=== PATIENT | male | born 2000 | race Two or more races ===

== ENCOUNTER 2024-07-15 21:22 | Emergency (ER) | payer MEDICAID, SELFPAY ==
[2024-07-15 22:06] VITALS: BP 117/78; PULSE 72; RESP 18; TEMP 37.2; O2SAT 99; BMI 25.8
--- NOTE | 2024-07-15 22:12 | PD.EDRME ---
Rapid Medical Screening Exam RME Arrival date/time: 07/15/24 21:22 23 yo m present to Ed for c/o of lower abdominal pain for 3 days I have greeted and performed a focused initial assessment of this patient. A comprehensive ED assessment and evaluation of the patient, analysis of all test results, and completion of the medical decision making process will be conducted by additional ED providers. Chief Complaint: Abdominal Pain Time Seen by Provider: 07/15/24 21:50 Vital signs: Vital Signs Temperature 98.9 F 07/15/24 22:06 Pulse Rate 72 07/15/24 22:06 Respiratory Rate 18 07/15/24 22:06 Blood Pressure 117/78 07/15/24 22:06 Pulse Oximetry (%) 99 07/15/24 22:06 Oxygen Delivery Method Room Air 07/15/24 22:06
--- NOTE | 2024-07-15 22:14 | XR_ITS ---
Examination: CT abdomen with intravenous contrast CT pelvis with intravenous contrast 2-D coronal reconstructions 2-D sagittal reconstructions Date and time of exam:July 16, 2024 0022 hrs. Indications: Right lower abdominal pain nausea vomiting beginning 3 days ago. CTDI: vol (mGy) 6.68 DLP: (mGycm) 368 Technique: Multiple axial sections of the abdomen and pelvis have been obtained. 64 slice high-resolution scanner used. 3 mm axial sections have been obtained, post intravenous injection 60 cc [id number] 2-D sagittal, coronal reconstructions obtained. Low dose protocols were performed. One or more of the following dose reduction techniques were used; automated exposure control, adjustment of the mA and/or KV according to patient size, use of iterative reconstruction technique. Findings: No focal liver or splenic lesions No gallstones Negative for pancreatitis No renal or ureteral calculi, no hydronephrosis Aorta normal size Normal appendix No bowel obstruction or diverticulitis Urinary bladder intact Impression: Normal appendix No acute process in the abdomen and pelvis
[2024-07-15 22:33] LABS: Basophils % (Auto) 0 % (0-2.5); Eosinophils % (Auto) 0 % (0-10); Hematocrit 48.4 % (41.0-53.0); Hemoglobin 17.5 g/dL (13.5-16.0); Immature Granulocytes % (Auto) 1 % (0-0); Immature Granulocytes Auto 0.05 Thou/mm3 (0.00-0.00); Lymphocytes # (Auto) 1.3 Thou/mm3 (1.0-4.8); Lymphocytes % (Auto) 13 % (10-50); Mean Corpuscular HGB Conc 36.2 g/dl (31.0-37.0); Mean Corpuscular Hemoglobin 31.1 pg (25.0-35.0); Mean Corpuscular Volume 86 fL (80-100); Monocytes # (Auto) 0.8 Thou/mm3 (0.0-0.8); Monocytes % (Auto) 8 % (0-12); Neutrophils # (Auto) 7.8 Thou/mm3 (1.8-7.7); Neutrophils % (Auto) 78 % (37-80); Nucleated Red Blood Cell % 0 /100 WBC (0); Platelet Count 189 Thou/mm3 (140-440); RDW Standard Deviation 38.4 fL (35.1-43.9); Red Blood Count 5.62 Miln/mm3 (4.50-5.90); White Blood Count 10.1 Thou/mm3 (3.8-10.6)
[2024-07-15 22:49] LABS: Alanine Aminotransferase 25 U/L (10-49); Anion Gap 9 (7-16); Aspartate Amino Transferase 23 U/L (0-34); BUN/Creatinine Ratio 9 Ratio (12-20); Bilirubin,Total 2.7 mg/dL (0.3-1.2); Blood Urea Nitrogen 10 mg/dL (9-23); Calcium 9.9 mg/dL (8.3-10.6); Carbon Dioxide 26.1 mMol/L (20.0-31.0); Chloride 104 mMol/L (98-107); Creatinine (Component) 1.1 mg/dL (0.6-1.3); Estimated Creatinine Clearance 108.8 mL/min (>60); Glucose 101 mg/dL (74-106); Osmolality,Calculated 276 (275-295); Potassium 4.4 mMol/L (3.4-5.1); Sodium 139 mMol/L (136-145); Total Protein 8.1 gm/dL (5.7-8.2); eGFR > 60 See Note
[2024-07-15 22:50] LABS: Albumin/Globulin Ratio 1.6 (1.2-2.2); Alkaline Phosphatase 122 U/L (46-116); Calcium (Corrected) 9.9 mg/dL (8.5-10.1); Globulin 3.1 gm/dL (2.3-3.5); Lipase 28 U/L (12-53)
[2024-07-15 23:26] LABS: Collection Type, Urine Voided
[2024-07-15 23:35] LABS: Bacteria,Urine Rare; Bilirubin,Urine Negative (Negative); Blood,Urine Negative (Negative); Clarity,Urine Clear (Clear/Hazy); Color,Urine Yellow (Lt Yel-Yel); Glucose, Urine Negative (Negative); Ketones,Urine Negative (Negative); Leukocyte Esterase,Urine Negative (Negative); Nitrite,Urine Negative (Negative); Protein,Urine 1+ (Neg - Trace); RBC,Urine 5 /hpf (0-3); Squamous Epithelial Cell,Urine < 1 /hpf (0-5); WBC,Urine 2 /hpf (0-5)
[2024-07-15] MEDS: ONDANSETRON ODT 4 MG TABRAP PO (23:37)
--- NOTE | 2024-07-16 00:37 | PD.EDABDPN ---
ED Abdominal Pain RME/HPI General Chief Complaint: Abdominal Pain Stated complaint: ABDOMINAL PAIN, N/V Time seen by provider: 07/15/24 21:50 Arrival date/time: 07/15/24 21:22 Limitations: no limitations RME / HPI RME / HPI narrative: 07/15/24 21:22 23 yo m present to Ed for c/o of lower abdominal pain for 3 days I have greeted and performed a focused initial assessment of this patient. A comprehensive ED assessment and evaluation of the patient, analysis of all test results, and completion of the medical decision making process will be conducted by additional ED providers. Dr. Vargas's Main ED Evaluation: 23yo male presents to the ED for a chief complaint of epigastric pain x 1 week. Patient states he started having epigastric pain, describing it as burning in nature. Patient states his pain worsened today and he had one nonbloody emetic episode, so he came in for evaluation. He states he eats a lot of spicy foods. He denies any fever, chills, diarrhea or any other associated symptoms. No known allergies. Related Data Previous Rx's ?Medication ?Instructions ?Recorded famotidine 20 mg tablet (Pepcid) 20 mg PO BID 30 days #60 tabs 07/16/24 Allergies Allergy/AdvReac Type Severity Reaction Status Date / Time No Known Allergies Allergy Verified 07/15/24 21:25 Review of Systems Review of Systems Systems Reviewed: All systems reviewed, normal except as documented ED Exam General Limitations: Present no limitations General appearance: Present alert and in no apparent distress Head Head exam: Present atraumatic Eye Eye exam: Present normal appearance, PERRL and EOMI ENT ENT exam: Present normal exam, normal oropharynx and mucous membranes moist Neck Neck exam: Present normal inspection, full ROM and trachea midline Chest Chest inspection: Present normal inspection and symmetric chest wall rise Respiratory Respiratory exam: Present normal lung sounds bilaterally Cardiovascular Cardiovascular exam: Present regular rate, normal rhythm and normal heart sounds Abdominal Exam Abdominal exam: Present soft and normal bowel sounds; Absent rebound Abdominal tenderness: Present epigastrium Extremities Exam Extremities exam: Present normal inspection and full ROM Back Exam Back exam: Present normal inspection and full ROM Neurological Exam Neurological exam: Present alert, oriented X3 and CN II-XII intact Psychiatric Psychiatric exam: Present normal affect and normal mood Skin Skin exam: Present warm, dry, intact and normal color Course Quality Measures none Orders Category Date Time Status Bedside Influenza A&B Antigen Test NOW Care 07/15/24 22:[address] Screening NOW Care 07/15/24 22:14 Active IV [Insert IV] STAT Care 07/15/24 22:[address] abdomen pelvis w con Stat Exams 07/15/24 22:14 Taken US gall bladder Stat Exams 07/16/24 00:47 Taken CBC Stat Lab 07/15/24 22:22 Completed CMP [Comprehensive Metabolic Panel] Stat Lab 07/15/24 22:22 Completed Lipase Stat Lab 07/15/24 22:22 Completed UA [Urinalysis] Stat Lab 07/15/24 23:13 Completed Urine Culture Stat Lab 07/15/24 22:12 Received Famotidine Inj [Pepcid Inj] Med 07/16/24 00:46 Discontinued 20 mg IVP X1 ONE Famotidine [Pepcid] Med 07/16/24 00:41 Discontinued 40 mg PO X1 ONE Ketorolac Inj [Toradol Inj] Med 07/16/24 00:45 Discontinued 30 mg IVP X1 ONE Ondansetron Odt [Zofran Odt] Med 07/15/24 22:14 Discontinued 4 mg PO X1 ONE Sodium Chloride 0.9% 1000 ml [Ns] 1,000 ml Med 07/16/24 00:45 Discontinued IV 999 mls/hr mg Hyd/Al Hyd/Yohannes Susp [Maalox Susp] Med 07/16/24 00:41 Discontinued 30 ml PO X1 ONE Reevaluation(s) Reevaluation #1: Patient states he feels significantly better and is afebrile at this time. Patient is stable to be discharged home. Time: 00:12 Vital Signs Vital signs: Vital Signs Temperature 98.9 F 07/15/24 22:06 Pulse Rate 72 07/15/24 22:06 Respiratory Rate 18 07/15/24 22:06 Blood Pressure 117/78 07/15/24 22:06 Pulse Oximetry (%) 99 07/15/24 22:06 Oxygen Delivery Method Room Air 07/15/24 22:06 Abdominal Pain MDM MDM Narrative MDM Narrative:: Patient does not have any evidence of gallstones or biliary duct dilatation shown on the US or CT. Unclear etiology, but I do not feel the patient needs further imaging here in the ED. Patient does not have a PCP, but I gave him close follow-up at the resident clinic, who can refer him to GI to r/o any other issues with his liver. Patient data External records reviewed:: [facility] previous records (Per chart review, patient has no previous ED visits.) Clinical information provided by:: patient Social determinants that could affect healthcare access:: none Patient has the following chronic illnesses:: none How is presenting disease/condition affected by chronic disease/condition?: no chronic disease Evaluation data The following diagnostics were reviewed and interpreted by me:: lab results and radiology exam(s) Lab and/or radiology exams considered but not ordered:: none Interpretation Summary: CBC is normal, Total Bilirubin is elevated at 2.7, Lipase is normal, UA is unremarkable, according to my interpretation. [employer] Preliminary Report Draft Patient: RAFA MACK [employer]. Record#: [id number] Birthdate: 2000 Age/Sex: 23 / M Location: [facility] Attending Dr: Ordering Physician: Date of Service: Procedure(s): Accession Number(s): cc: ~ CT scan of the abdomen and pelvis with intravenous contrast (axial sections with sagittal and coronal reformats) July 16, 2024 0022 hours Clinical History: Right lower quadrant pain for 3 day, nausea and vomiting. Comparison: No prior study is available for comparison. Findings: The lung bases are clear. The liver, gallbladder, pancreas, spleen, kidneys and adrenals are unremarkable. No evidence of bowel obstruction. The appendix is within normal limits (coronal images 59-64/141 ). There is no mesenteric or retroperitoneal adenopathy. The urinary bladder is unremarkable. There is no free fluid or free air. The osseous structures are unremarkable. Impression: No evidence of appendicitis or other acute intra-abdominal/pelvic pathology. Report Electronically Signed By: Mekhi Ruiz 07/16/2024 1:32:24 AM [EST] [employer] Preliminary Report Draft Patient: RAFA MACK [employer]. Record#: [id number] Birthdate: 2000 Age/Sex: 23 / M Location: [facility] Attending Dr: Ordering Physician: Date of Service: Procedure(s): Accession Number(s): cc: ~ Right upper quadrant abdominal ultrasound with doppler and wave doppler spectral analysis. July 16, 2024 0341 hours Clinical history: Elevated total bili alk phos possible gallstones. Technique: Grayscale and color flow images of the right upper quadrant are provided. Hepatic and portal veins were also imaged with color flow images. Comparison: CT of July 16, 2024. Findings: The liver demonstrates heterogenous echogenicity. No intrahepatic biliary ductal dilatation. No gallbladder calculus, wall thickening or pericholecystic fluid is demonstrated. The common bile duct is normal in caliber at 2.2 mm. The pancreas is unremarkable to the extent visualized. The imaged portions of the right kidney are within normal limits. The portal vein is patent with hepatopetal flow and normal wave Doppler spectral analysis. The hepatic veins are patent. Impression: Heterogenous liver, consider further evaluation to exclude cirrhosis or hepatitis. No evidence of cholecystitis. Report Electronically Signed By: Marty Chung 07/16/2024 4:46:15 AM [EST] Medications / Prescriptions Medications or Prescriptions considered but not ordered:: none Medication administrations:: Medication Administration History Discontinued Medications Al Hydrox/Mg Hydrox/Simethicone (Mg Hyd/Al Hyd/Yohannes (Maalox Reg) Susp 30 Ml Udc) 30 ml PO X1 ONE Stop: 07/16/24 00:42 Last Admin: 07/16/24 01:50 Dose: 30 ml Documented By: JENELLE Famotidine (Famotidine 20 Mg Tablet) 40 mg PO X1 ONE Stop: 07/16/24 00:42 Last Admin: 07/16/24 02:03 Dose: Not Given Documented By: GENA Non-Admin Reason: Discontinued Famotidine (Famotidine Inj 10 Mg/Ml Vial 2 Ml) 20 mg IVP X1 ONE Stop: 07/16/24 00:47 Last Admin: 07/16/24 01:50 Dose: 20 mg Documented By: JENELLE Sodium Chloride (Ns) 1,000 mls @ 999 mls/hr IV .Q1H1M ONE Stop: 07/16/24 01:45 Last Infusion: 07/16/24 03:16 Dose: Infused Documented By: Admin: 07/16/24 01:51 Dose: 999 mls/hr Documented By: JENELLE Ketorolac Tromethamine (Ketorolac Inj 30 Mg/Ml Vial) 30 mg IVP X1 ONE Stop: 07/16/24 00:46 Last Admin: 07/16/24 01:51 Dose: 30 mg Documented By: JENELLE Ondansetron HCl (Ondansetron Odt 4 Mg Tabrap) 4 mg PO X1 ONE; Protocol Stop: 07/15/24 22:15 Last Admin: 07/15/24 23:37 Dose: 4 mg Documented By: GENA see above Consultations Consultation(s) initiated? (list below): No Diagnosis Differential diagnosis abdominal pain: other (gallstones, gallstone pancreatitis, CBD stone, cholecystitis) Most likely diagnosis given after review of the tests above:: see clinical impression below Admission Indicated Admission indicated?: not indicated Admission Request Was there a request for admission?: No Disposition Plan Disposition Plan: Discharge Discharge Attestation Discharge Attestation: The patient and all family members were given an opportunity to ask questions and understood the discharge instructions. Discharge instructions specifically effects, indications for sooner follow up or return to the emergency department, and the expected course of current diagnosis. Patient condition: Stable Discharge Plan Plan Patient Disposition: HOME (Self Care) Patient condition on transfer: Stable Prescriptions/Referrals Prescriptions/Med Rec: New famotidine [Pepcid] 20 mg tablet 20 mg PO BID 30 Days Qty: 60 0RF Referrals: Darwin Rhodes MD [Physician] - In 1 week (Call to make an appointment.) No Primary/Family,Physician [Primary Care Provider] - In 1 week Problem List Clinical Impression: Epigastric abdominal pain, LFT elevation Patient/Caregiver Discharge Instructions Education Materials: ED Epigastric Pain (Uncertain Cause) Additional Instructions: Even though you have been discharged from the Emergency Department, there are several things that you should do to ensure that you receive proper care: 1. DO READ your discharge instructions as these contain important information concerning your medical care. 2. If medication has been prescribed for your condition, fill the prescription as soon as possible and follow the directions on the medication. 3. RETURN AT ONCE TO THE EMERGENCY DEPARTMENT if you have any problems or concerns. These include but are not limited to fever, worsening pain(belly, chest, head, etc?), worsening shortness of breath, uncontrollable bleeding, inability to tolerate food and water, or any condition that makes you question your well-being. Also, if your symptoms do not improve in the next 12-24 hours, return to the ER or seek medical care immediately. 4. You will need to get a primary care physician. It is important that you follow-up in the next 3 days. [place] [address] [place] [id number] Hours: Monday - Monday, 8 AM - 4:30 PM (Closed 12 PM - 1 PM) Contact Us: 5. Please visit [employer] for coupons regarding your prescriptions. It is a free service for you to use and can help reduce the cost of your medication. We would like to thank you for coming today and our hope is that we served you and your family well during your stay 6. During your workup, there was an incidental finding of elevated total bili to 2.7 and mildly elevated alk phos 122. It is important that you follow-up with your primary care provider to further workup and discuss this finding. A copy of the pertinent findings has been included in your discharge paperwork for future reference of your primary care provider to aid in timely treatment if necessary. Failure to follow-up to find out why your liver function tests are elevated can lead to a failed or missed diagnosis. I also will give you a referral to dispute specialist. Please call Dr. Rhodes's office for follow-up in the next 1 week. Your ultrasound and CT scan does not show that you have gallstones. Please avoid greasy and fatty foods so that you do not exacerbate your pain. Print Language: Amharic Stand Alone Forms: Katie Award Info., Patient Portal Info Letter
--- NOTE | 2024-07-16 00:47 | XR_ITS ---
Examination: Abdomen sonogram, Limited Date and time of exam: July 16, 2024 0343 hrs. Indications: Right upper abdominal pain beginning 2 days ago Technique: Real-time pacheco scale transabdominal sonographic images of the upper abdomen obtained. Findings: Normal gallbladder Normal common bile duct 0.2 cm Pancreatic head 2.0 cm Liver 15.6 cm no liver lesions Normal hepatopedal portal venous flow Patent IVC Impression: Normal gallbladder Mild hepatomegaly
--- NOTE | 2024-07-16 01:33 | PRELIM_ITS ---
CT scan of the abdomen and pelvis with intravenous contrast (axial sections with sagittal and coronal reformats) July 16, 2024 0022 hours Clinical History: Right lower quadrant pain for 3 day, nausea and vomiting. Comparison: No prior study is available for comparison. Findings: The lung bases are clear. The liver, gallbladder, pancreas, spleen, kidneys and adrenals are unremarkable. No evidence of bowel obstruction. The appendix is within normal limits (coronal images 59-64/141 ). There is no mesenteric or retroperitoneal adenopathy. The urinary bladder is unremarkable. There is no free fluid or free air. The osseous structures are unremarkable. Impression: No evidence of appendicitis or other acute intra-abdominal/pelvic pathology. Report Electronically Signed By: Mekhi Ruiz 07/16/2024 1:32:24 AM [EST]
[2024-07-16] MEDS: FAMOTIDINE INJ 10 MG/ML VIAL 2 ML 20 MG IVP (01:50)
[2024-07-16] MEDS: MG HYD/AL HYD/SIME (Maalox Reg) SUSP 30 ML UDC PO (01:50)
[2024-07-16] MEDS: KETOROLAC INJ 30 MG/ML VIAL IVP (01:51)
[2024-07-16] MEDS: SODIUM CHLORIDE 0.9% 1000 ML 1,000 ML 999 ML IV (01:51)
[2024-07-16 01:53] VITALS: BP 132/87; PULSE 69; RESP 19; TEMP 36.7; O2SAT 98
[2024-07-16 03:13] VITALS: BP 121/73; PULSE 61; RESP 16; TEMP 36.7; O2SAT 99
--- NOTE | 2024-07-16 04:47 | PRELIM_ITS ---
Right upper quadrant abdominal ultrasound with doppler and wave doppler spectral analysis. July 16, 2024 0341 hours Clinical history: Elevated total bili alk phos possible gallstones. Technique: Grayscale and color flow images of the right upper quadrant are provided. Hepatic and portal veins were also imaged with color flow images. Comparison: CT of July 16, 2024. Findings: The liver demonstrates heterogenous echogenicity. No intrahepatic biliary ductal dilatation. No gallbladder calculus, wall thickening or pericholecystic fluid is demonstrated. The common bile duct is normal in caliber at 2.2 mm. The pancreas is unremarkable to the extent visualized. The imaged portions of the right kidney are within normal limits. The portal vein is patent with hepatopetal flow and normal wave Doppler spectral analysis. The hepatic veins are patent. Impression: Heterogenous liver, consider further evaluation to exclude cirrhosis or hepatitis. No evidence of cholecystitis. Report Electronically Signed By: Marty Chung 07/16/2024 4:46:15 AM [EST]
[2024-07-16 05:07] VITALS: BP 121/72; PULSE 66; RESP 18; TEMP 36.9; O2SAT 98
[2024-07-16 05:33] VITALS: RESP 18
== END 2024-07-16 05:34 | disposition home or self-care (01) ==
PROVIDERS: Physician Assistant; Emergency Provider Emergency Medicine
DX: R10.13 Epigastric pain (principal); R79.89 Other specified abnormal findings of blood chemistry
CPT/HCPCS: 36415; 74177; 76705; 80053; 81001; 83690; 85025; 87077; 87086; 87400; 87811; 96361; 96374; 99285; A4649; J1885; J3490; J7030; Q0162; Q9967; A9270